=== PATIENT | male | born 1945 | race Caucasian/White ===

== ENCOUNTER 2019-10-19 00:06 | Emergency (ER) | payer MEDICARE, OTHER ==
[2019-10-19] MEDS ORDERED: CLINDAMYCIN HCL 150 MG CAPSULE PO ONE (03:01)
[2019-10-19] MEDS ORDERED: FAMOTIDINE 20 MG TABLET PO ONE (03:02)
[2019-10-19] MEDS ORDERED: PREDNISONE 20 MG TABLET PO ONE (03:03)
--- NOTE | 2019-10-19 03:11 | ER Document Report ---
ED General - General Chief Complaint: Insect Bite Stated Complaint: RIGHT POSSIBLE INSECT BITE/SWOLLEN Time Seen by Provider: 10/19/19 02:39 - HPI Exacerbated by: Other - Nothing Relieved by: Other - None Notes: 74-year-old male presents to the emergency department complaining of erythema and swelling involving the dorsal surface of his right hand. Patient thinks he may have either been bitten by a spider while he was mowing the grass earlier today or may have managed to puncture the skin of his hand on a sharp tip of a plant while working in the yard. Patient states he noted mild swelling and redness mainly involving his right middle finger at the base but it spread over the base of the middle finger and over the dorsal surface of the patient's second and third and fourth MCPs over the past 4 hours. Patient states he is not having any pain in his hand. Patient states that nothing seems to exacerbate his symptoms and nothing seems to alleviate his symptoms. - Related Data Allergies/Adverse Reactions: No Known Allergies Allergy (Verified 10/19/19 01:24) Past Medical History - General Information source: Patient - Social History Smoking Status: Current Every Day Smoker Chew tobacco use (# tins/day): No Frequency of alcohol use: None Drug Abuse: None Family History: Reviewed & Not Pertinent Review of Systems - Review of Systems Constitutional: No symptoms reported EENT: No symptoms reported Cardiovascular: No symptoms reported Respiratory: No symptoms reported Gastrointestinal: No symptoms reported Genitourinary: No symptoms reported Male Genitourinary: No symptoms reported Musculoskeletal: No symptoms reported Skin: See HPI Hematologic/Lymphatic: No symptoms reported Neurological/Psychological: No symptoms reported -: Yes All other systems reviewed and negative Physical Exam - Vital signs Vitals: Temp Pulse Resp BP Pulse Ox 98.2 F 69 16 164/65 H 98 10/19/19 00:16 10/19/19 00:16 10/19/19 00:16 10/19/19 00:16 10/19/19 00:16 - Notes Notes: CONSTITUTIONAL [Vital signs reviewed, Patient appears comfortable, Alert and oriented X 3, Normal stature.] HEAD [Atraumatic, Normocephalic.] EYES [Eyes are normal to inspection, No discharge from eyes, Extraocular muscles intact, Sclera are normal, Conjunctiva are normal.] NECK [Normal ROM, No jugular venous distention, No meningeal signs, no carotid bruit.] RESPIRATORY CHEST [Chest is nontender, Breath sounds normal, No respiratory distress.] CARDIOVASCULAR [RRR, No murmurs, Normal S1 S2, No rub, No gallop.] ABDOMEN [Abdomen is nontender, No pulsatile masses, No other masses, Bowel sounds normal, No distension, No peritoneal signs, No hernias.] BACK [There is no CVA Tenderness, There is no tenderness to palpation, Normal inspection.] UPPER EXTREMITY No cyanosis, No clubbing, No edema, 2+ radial pulses. Right hand is significant for edema and erythema mainly at the base of the third finger on the dorsal surface. There is also a punctate natalio that looks like a puncture wound or an excoriation there is erythema on the dorsum of the hand that involves the second third and fourth MCPs and the third finger from the MCP to the PIP. Patient has full range of motion and all digits and right hand. Cap refills less than 2 seconds. Area is nontender to palpation.] LOWER EXTREMITY [Inspection normal, No cyanosis, No clubbing, No edema, No calf tenderness, 2+ femoral pulses.] NEURO [No focal motor deficits, No focal sensory deficits, Speech normal.] SKIN see upper extremity exam. No other focal skin findings LYMPHATIC [No adenopathy in neck.] PSYCHIATRIC [Normal affect. ] Course - Re-evaluation Re-evalutation: 10/19/19 04:03 Results of ED MSE discussed with patient. All questions were answered prior to discharge. Emergency signs and symptoms, reasons to return to the emergency department discussed with patient. Differential diagnosis/medical decision making: There are no obvious foreign body seen on the patient's hand x-rays. The patient denies pruritus at the involved site. Differential includes insect bite versus sting versus foreign body versus cellulitis. I think the diagnosis highest to consider on the differential is cellulitis given the appearance of the area, the punctate lesion in the center of it and the surrounding erythema and edema. Plan clindamycin 300 mg p.o. 3 times daily x7 days. Return to emergency department if symptoms worsen despite taking medication as prescribed. - Vital Signs Vital signs: Temp Pulse Resp BP Pulse Ox 98.2 F 69 16 164/65 H 98 10/19/19 00:16 10/19/19 00:16 10/19/19 00:16 10/19/19 00:16 10/19/19 00:16 - Diagnostic Test Radiology reviewed: Reports reviewed Discharge - Discharge Clinical Impression: Cellulitis of right hand Condition: Stable Disposition: HOME, SELF-CARE Additional Instructions: Return to the Emergency Department without delay if any worse. HOME CARE INSTRUCTIONS & INFORMATION: Thank you for choosing us for your medical needs. We hope you're satisfied with the care you received. After you leave, you must properly care for your problem and, at the same time, observe its progress. Any condition can change. Some illnesses can change rapidly over hours or days. If your condition worsens, return to the Emergency Department or see your physician promptly. ABOUT YOUR X-RAYS AND EKG'S: If you had an EKG or X-rays taken, they have been read by the Emergency Physician. The X-rays and EKG's will also be read by a Radiologist or Machine Milker within 24 hours. If discrepancies are noted, you will be notified by telephone. Please be certain the ED has a correct telephone number & address where you can be reached. Also, realize that some fractures or abnormalities do not show up on initial X-rays. If your symptoms continue, see your physician. ABOUT YOUR LABORATORY TEST: If you had laboratory tests, the results have been reviewed by the Emergency Physician. Some test results (for example cultures) may not be available for several days. You will be contacted if any test result shows you need additional treatment. Please be certain the ED has a correct telephone number and address where you can be reached. ABOUT YOUR MEDICATIONS: You will receive instructions on how to take your medicine on the prescription label you receive. Additional information may be provided by the Pharmacy. If you have questions afterwards, call the ED for clarification or further instructions. Some prescribed medications may cause drowsiness. Do not perform tasks such as driving a car or operating machinery without consulting your Pharmacist. If you feel you need a refill of pain medication, your condition will need re-evaluation. Please do not call for a refill of any medication. ABOUT YOUR SIGNATURE: Signature of this document acknowledges to followin. Understanding that you received emergency treatment and that you may be released before al medical problems are known or treated. Please be certain the ED has a correct phone number & address where you can be reached. 2. Acknowledgement that you will arrange for follow-up care as recommended. 3. Authorization for the Emergency Physician to provide information to your follow-up Physician in order to maximize your care. AT ANY TIME, IF YOUR SYMPTOMS CHANGE SIGNIFICANTLY OR WORSEN OR YOU DEVELOP NEW SYMPTOMS, RETURN TO THE EMERGENCY DEPARTMENT IMMEDIATELY FOR RE-EVALUATION. OUR GOAL IS TO PROVIDE EXCELLENT MEDICAL CARE! WE HOPE THAT WE HAVE MET YOUR EXPECTATIONS DURING YOUR EMERGENCY DEPARTMENT VISIT AND THAT YOU FEEL YOU HAVE RECEIVED EXCELLENT CARE! Cellulitis You have an infection of your skin and underlying soft tissues called cellulitis. This is due to bacteria, which can enter through any break in the skin, or even through an irritated hair follicle. Untreated, cellulitis will usually worsen. Antibiotics are required. Usually, warm packs or warm soaks, and elevation of the infected area are recommended. You should start getting better within 24 to 36 hours. Most infections respond quickly to the right medication. Follow-up care is important, however, to check for abscess (boil) formation, unsuspected foreign body, or resistant infection. If you develop fever, chills, or if the area of infection is becoming rapidly more swollen or painful, call the doctor at once. Prescriptions: Clindamycin HCl [Cleocin 150 mg Capsule] 300 mg PO TID 7 Days #42 capsule Referrals: JAMMIE CHILD MD [HONORARY] - Follow up as needed
--- NOTE | 2019-10-19 03:39 | RADIOLOGY REPORT (SQ) ---
EXAM DESCRIPTION: XR HAND 3 OR MORE VIEWS COMPLETED DATE/TME: 10/19/2019 02:59 CLINICAL HISTORY: 74 years, Male, ? foreign body COMPARISON: None. NUMBER OF VIEWS: 3 TECHNIQUE: 3 views of the right hand LIMITATIONS: None. FINDINGS: Negative for acute fracture or dislocation. No radiopaque foreign body. Degenerative changes of the hand and wrist. IMPRESSION: No acute osseous abnormality. No radiopaque foreign body copyright 2010 [employer]- All Rights Reserved
[2019-10-19 04:17] VITALS: BP 142/59
== END 2019-10-19 04:17 | disposition home or self-care (01) ==
LOC: ER 00:06
DX: L03.113 Cellulitis of right upper limb (principal); F17.200 Nicotine dependence, unspecified, uncomplicated
CPT/HCPCS: 99283; 73130; A9270 ×3; J7512